=== PATIENT | male | born 1995 | race Caucasian/White ===

== ENCOUNTER → 2023-09-11 10:06 | Outpatient (REF) | payer OTHER, SELFPAY | LOC: RAD 10:06 | PROVIDERS: ATTENDING PHYSICIAN Physician Assistant | DX: M25.511 Pain in right shoulder (principal) | CPT/HCPCS: 73030 ==

== ENCOUNTER → 2023-12-12 16:04 | Outpatient (REF) | payer OTHER, SELFPAY | LOC: RAD 16:04 | PROVIDERS: ATTENDING PHYSICIAN Physician Assistant | DX: M25.571 Pain in right ankle and joints of right foot (principal) | CPT/HCPCS: 73610 ==

== ENCOUNTER 2024-01-31 10:03 | Outpatient (RCR) | payer OTHER, SELFPAY | END 2024-01-31 23:59 | disposition home or self-care (01) | LOC: RPT 10:03 | PROVIDERS: ATTENDING PHYSICIAN Physician Assistant | DX: M25.511 Pain in right shoulder (principal); Z73.6 Limitation of activities due to disability | CPT/HCPCS: 97010; 97110; 97112; 97140; 97162 ==

== ENCOUNTER 2024-02-05 10:11 | Outpatient (RCR) | payer OTHER, SELFPAY | END 2024-02-05 23:59 | disposition home or self-care (01) | LOC: RPT 10:11 | PROVIDERS: ATTENDING PHYSICIAN Physician Assistant | DX: M25.511 Pain in right shoulder (principal); Z73.6 Limitation of activities due to disability; R26.89 Other abnormalities of gait and mobility | CPT/HCPCS: 97110; 97140 ==

== ENCOUNTER → 2024-02-29 17:12 | Outpatient (REF) | payer OTHER, SELFPAY | LOC: PAVMRI 17:12 | PROVIDERS: ATTENDING PHYSICIAN Physician Assistant | DX: M25.511 Pain in right shoulder (principal); M25.60 Stiffness of unspecified joint, not elsewhere classified; R20.0 Anesthesia of skin; R20.2 Paresthesia of skin | CPT/HCPCS: 73221 ==

== ENCOUNTER → 2024-10-15 11:31 | Outpatient (REF) | payer OTHER, SELFPAY | LOC: RAD 11:31 | PROVIDERS: ATTENDING PHYSICIAN Physician Assistant | DX: M25.522 Pain in left elbow (principal); R29.898 Other symptoms and signs involving the musculoskeletal system | CPT/HCPCS: 73080 ==

== ENCOUNTER → 2025-05-04 12:59 | Outpatient (REF) | payer OTHER, SELFPAY | LOC: MRI 3T 12:59 | PROVIDERS: ATTENDING PHYSICIAN Physician Assistant | DX: M25.522 Pain in left elbow (principal) | CPT/HCPCS: 73221 ==